=== PATIENT | female | born 1985 | race Caucasian/White ===

== ENCOUNTER 2020-10-06 08:53 | Emergency (ER) | payer OTHER ==
[~2020-10-06] VITALS: Ht 182.9 cm; Wt 150.0 kg
[~2020-10-06 08:53] MED LIST: NITR100C6 PO; NO HOME MEDS; PHEN-786 PO
[2020-10-06 09:05] VITALS: BP 182/83
[2020-10-06] MEDS ORDERED: ketorolac trometh. 30mg/ml inj. IM ONE (11:10)
[2020-10-06] MEDS ORDERED: CYCL-1 PO (11:25)
== END 2020-10-06 12:02 | disposition home or self-care (01) ==
LOC: ER 08:53
DX: S39.012A Strain of muscle, fascia and tendon of lower back, initial encounter (principal); F17.200 Nicotine dependence, unspecified, uncomplicated; Z87.440 Personal history of urinary (tract) infections; Z79.899 Other long term (current) drug therapy; X58.XXXA Exposure to other specified factors, initial encounter; Y93.89 Activity, other specified; Y92.89 Other specified places as the place of occurrence of the external cause; Y99.8 Other external cause status
CPT/HCPCS: 96372; 99283; J1885

== ENCOUNTER 2020-10-20 11:04 | Outpatient (CLI) | payer OTHER ==
[~2020-10-20 11:04] MED LIST changes: +CYCL-1 PO
== END 2020-10-20 23:59 | disposition home or self-care (01) ==
LOC: RAD 11:04
PROVIDERS: ATTEND Family Medicine
DX: M54.16 Radiculopathy, lumbar region (principal)